=== PATIENT | male | born 1945 | race Caucasian/White ===

== ENCOUNTER 2016-10-31 06:56 | Day surgery (SDC) | payer MEDICARE, OTHER ==
[2016-10-24 10:14] LABS: BASOPHILS 0.6 %; BASOPHILS ABSOLUTE 0.04 10/3/uL (0.0-0.16); EOSINOPHILS 3.8 %; EOSINOPHILS ABSOLUTE 0.26 10/3/uL (0.0-0.53); HEMATOCRIT 39.3 % (40.0-51.0); HEMOGLOBIN 12.9 g/dL (13.6-17.8); IMMATURE GRANULOCYTES 0.3 %; IMMATURE GRANULOCYTES ABSOLUTE 0.02 10/3/uL (0.0-0.11); LYMPHOCYTES 36.2 %; MEAN CORPUS HGB CONC 32.8 g/dL (32.0-36.0); MEAN CORPUSCULAR HEMOGLOB 29.8 pg (26.0-34.0); MEAN PLATELET VOLUME 10.7 fL (9.2-13.0); MONOCYTES 8.7 %; NEUTROPHILS 50.4 %; NEUTROPHILS ABSOLUTE 3.49 10/3/uL (2.02-8.40); PLATELET COUNT 167 10/3/uL (150-400); RBC DISTRIBUTION WIDTH 14.5 % (12.0-16.0); RED CELL COUNT 4.33 10/6/uL (4.7-6.1); WHITE BLOOD CELLS 6.9 10/3/uL (4.5-10.5)
[2016-10-24 10:15] LABS: MANUAL DIFF NO %; MEAN CORPUSCULAR VOLUME 90.8 fL (80-100)
[2016-10-24 10:20] LABS: INTERNATIONAL NORMAL RATI 1.1 UNITS (-); PARTIAL THROMBO TIME 32.1 SEC (22.5-37.2); PROTIME (NOT ORD) 13.8 SEC (12.0-14.5)
[2016-10-24 10:28] LABS: BUN (BLOOD UREA NITROGEN) 15 MG/DL (6-23); CALCIUM, SERUM 9.3 MG/DL (8.5-10.4); CHLORIDE, SERUM 112 MMOL/L (96-112); CO2 (CARBON DIOXIDE) 27 MMOL/L (24-34); CREATININE 1.69 MG/DL (0.70-1.30); GFR AFRICAN AMERICAN 47 ML/MIN (>=60); GFR NON AFRICAN AMERICAN 41 ML/MIN (>=60); GLUCOSE, SERUM 101 MG/DL (60-99); SODIUM, SERUM 147 MMOL/L (135-148)
[2016-10-24 10:29] LABS: POTASSIUM, SERUM 4.3 MMOL/L (3.5-5.3)
--- NOTE | ~2016-10-31 | OP ---
Record Of Operation [facility] [address] [place]. [address] NAME: THANG LUIS : 49 [place]US : [place] [facility] [id number] AGE: 71 ADM/REG DATE : 10/31/16 MR#: [id number] REPORT SERV DATE: 10/31/16 DICTATED BY: KATHY JACKSON DATE: 10/31/16 REPORT STATUS : Draft TRANSCRIBED BY: MODL DATE: 10/31/16 DATE OF PROCEDURE: 10/31/2016 PREOPERATIVE DIAGNOSIS: Right ureteral stone. POSTOPERATIVE DIAGNOSIS: Right ureteral stone. PROCEDURE PERFORMED: Cystoscopy, right retrograde pyelogram, right rigid ureteroscopy with laser fragmentation, and stone extraction and stent placement. SURGEON: Kathy Jackson M.D. ANESTHESIA: General. ESTIMATED BLOOD LOSS: Less than 10 mL. INDICATIONS: This is a 71-year-old white male, who has recently been found to have an obstructing 6 or 7 mm right ureteral stone. After discussion of management options, we have elected to proceed with endoscopic fragmentation and/or removal. Risks of infection, bleeding, failure, prolonged stenting, etc, were reviewed. PROCEDURE IN DETAIL: The patient was taken to the operating room and underwent a general anesthetic. He was placed in the lithotomy position on the table, and his external genitalia were sterilely prepped and draped. The 22-Canadian cystoscope sheath with 30-degree lens was inserted under direct vision per urethra with the aid of the video monitor. The anterior urethra looked normal. The prostate showed evidence of a previous TURP and looked relatively open. There was no bladder neck contracture, and no significant median or lateral lobe adenoma. The urine in the bladder was somewhat cloudy. The bladder was drained and thoroughly inspected. It was somewhat irritated. There were no mass, lesions in the bladder. Single orifices were seen bilaterally. The right orifice was cannulated with a 5-Canadian open-ended catheter and a retrograde pyelogram was obtained showing what I thought was a filling defect in the distal ureter corresponding to the stone and proximal to this, the ureter was perhaps mildly dilated as was the renal collecting system. An 0.038 guidewire was then advanced up into the collecting system of the kidney under fluoroscopic guidance. The cystoscopic apparatus was removed from the bladder and a 9.5/11-Canadian ureteral access sheath was used to dilate the distal ureter up to the level of the stone. The rigid ureteroscope was then advanced up into the bladder again with the aid of the video monitor and the scope was easily advanced up into the ureter and a relatively large stone was encountered. The 200 micron laser device was used to fragment the stone into many small pieces reducing the main bulk of stone into a central core, which was then removed using a basket. I would say the stone was about 7 or may be 8 mm in size. The ureter was reinspected with no significant findings and no significant residual stones noted. At that point, the ureteroscope was withdrawn from the bladder. The cystoscope was replaced over the guidewire and a 6-Canadian x 28 cm Contour stent was advanced over the guidewire such that the proximal end of the stent was observed to coil in the pelvis of the kidney under fluoroscopic guidance and the distal end of the stent was visually observed to coil in the Record Of Operation [address] [place]. [address] NAME: THANG LUIS : 49 [place]US : [place] [facility] [place] PAT#: [id number] AGE: 71 ADM/REG DATE : 10/31/16 MR#: [id number] REPORT SERV DATE: 10/31/16 DICTATED BY: KATHY JACKSON DATE: 10/31/16 REPORT STATUS : Draft TRANSCRIBED BY: BRODERICK DATE: 10/31/16 bladder following removal of the guidewire. The stent was left connected to a string dangle which was taped to the patient's penis. I placed an 18-Canadian coude catheter and left this to gravity drainage as well. The patient was taken to recovery in stable condition. TRISH/BRODERICK Kathy Jackson M.D. / [id number] CC: Luc Miller M.D.
[~2016-10-31 06:56] MED LIST: AMB10 PO; ANOROELLIPTA INH; ATARAX50B PO; BRIMONIDINE0.2 % OPH; DOX10 PO; ENDOCET1 TA3 PO; FISH OIL1200 MG PO; FLOMAX4 PO; LORT2.5 PO; LOTREL1 CA2 PO; LUMIGAN OPH; PERPHENAZINE2 MG PO; PRIN10 PO; PROAIR HFA INH; PROSCAR5 PO; PROTONIX PO; RANITIDINE300 MG PO; TOPAMAX25 PO; TOPAMAX50 MG PO; WELLSR150 PO; ZANAFLEX 4 MG TA4 MG PO
[2016-11-06 10:54] LABS: STONE COMPOSITION TWO DNR (())
== END 2016-10-31 13:30 | disposition home or self-care (01) ==
LOC: SDC 06:56
PROVIDERS: Urology
PROC: 0T768DZ Dilation of Right Ureter with Intraluminal Device, Via Natural or Artificial Opening Endoscopic (ICD-10-PCS; 2016-10-31)
PROC: 0TC68ZZ Extirpation of Matter from Right Ureter, Via Natural or Artificial Opening Endoscopic (ICD-10-PCS; 2016-10-31)
PROC: 0TF68ZZ Fragmentation in Right Ureter, Via Natural or Artificial Opening Endoscopic (ICD-10-PCS; principal; 2016-10-31 08:45)
DX: N20.1 Calculus of ureter (principal); I10 Essential (primary) hypertension; E11.9 Type 2 diabetes mellitus without complications; E78.00 Pure hypercholesterolemia, unspecified; J44.9 Chronic obstructive pulmonary disease, unspecified; K21.9 Gastro-esophageal reflux disease without esophagitis; K64.9 Unspecified hemorrhoids; F32.9 Major depressive disorder, single episode, unspecified; F41.9 Anxiety disorder, unspecified; G47.33 Obstructive sleep apnea (adult) (pediatric); G40.909 Epilepsy, unspecified, not intractable, without status epilepticus; H40.9 Unspecified glaucoma; M19.90 Unspecified osteoarthritis, unspecified site; Z88.8 Allergy status to other drugs, medicaments and biological substances; Z96.651 Presence of right artificial knee joint; Z87.891 Personal history of nicotine dependence; Z96.1 Presence of intraocular lens; Z98.41 Cataract extraction status, right eye; Z98.42 Cataract extraction status, left eye; Z90.49 Acquired absence of other specified parts of digestive tract; Z98.890 Other specified postprocedural states
CPT/HCPCS: 71020; 74420; 80048; 82365; 82962; 83970; 85025; 85610; 85730; 93005; C1758; C2617; J1170; J2250; J2405; J3010; Q9967

== ENCOUNTER 2016-11-21 16:35 | Inpatient (IN) | payer MEDICARE, OTHER ==
--- NOTE | ~2016-11-21 | DS ---
Discharge Summary [facility] [address] [place]. [address] NAME: TYSON LUIS : 49 STATUS : DIS IN PAT#: [id number] AGE: 71 ADM/REG DATE : 11/21/16 MR#: [id number] REPORT SERV DATE: 11/24/16 DICTATED BY: SHOSHANA CAMACHO DATE: 11/23/16 REPORT STATUS : Draft TRANSCRIBED BY: MODL DATE: 11/23/16 ADMISSION DATE: 11/21/2016 DISCHARGE DATE: 11/23/2016 The patient was admitted to the Hospitalist Service. CONSULTANTS: Dr. Michael Adkins, Gastroenterology. DISCHARGE DIAGNOSES: 1. Chronic nausea. 2. Chronic dysphagia, present on arrival. 3. Hypertension. 4. Presyncope. 5. Chronic pain. 6. Bradycardia. 7. Chronic kidney disease, stage 3. 8. Recent lithotripsy and ureteral stent. 9. Atypical chest pain. PROCEDURES: 11/22/2016, upper GI endoscopy revealed normal examined duodenum, normal stomach biopsied, normal esophagus dilated. IMAGING AND DIAGNOSTICS: 1. EKG on 11/22/2016 in the emergency room showed marked sinus bradycardia, ventricular rate 43 beats per minute. Repeat EKG on 11/22/2016, normal sinus rhythm, cannot rule out anterior infarct, age undetermined. 2. EKG, 11/23/2016, normal sinus rhythm. 3. Transthoracic echocardiogram on 11/22/2016 revealed a normal LV size and systolic function with an EF of 60%. Mild LV diastolic dysfunction. Normal right ventricular size and systolic function. No significant valvular disease. 4. Nuclear medicine stress test on 11/23/2016, imaging demonstrated no ischemia, post infusion LVEF greater than 60%. Overall low-risk vasodilator stress test. 5. A carotid ultrasound revealed carotids category 1, less than 50% luminal stenosis bilaterally. Right vertebral antegrade subclavian velocity 81 cm/second. Left vertebral antegrade subclavian velocity 107 cm/second. LABORATORY STUDIES: 1. Discharge basic metabolic panel on 11/23/2016 revealed a sodium of 145, potassium 3.8, chloride 113, CO2 of 23, BUN 15, creatinine 1.34, GFR 54, glucose 90, calcium 9.4, magnesium 1.9. 2. Discharge CBC on 11/23/2016 revealed a white count of 7, hemoglobin 12, hematocrit 37.4, platelets 178,000. 3. Urinalysis on 11/21/2016 was negative. HISTORY OF PRESENT ILLNESS: For complete history, please refer to admission H and P by Dr. Shaggy Ace. Briefly, Mr. Luis is a 71-year-old, gentleman with a history of Discharge Summary [address] [address] NAME: TYSON LUIS : 49 STATUS : DIS IN PAT#: [id number] AGE: 71 ADM/REG DATE : 11/21/16 MR#: [id number] REPORT SERV DATE: 11/24/16 DICTATED BY: SHOSHANA CAMACHO DATE: 11/23/16 REPORT STATUS : Draft TRANSCRIBED BY: BRODERICK DATE: 11/23/16 dysphagia, presented to the emergency room with a three-week history of nausea, vomiting, and presyncope. He states that he had a ureteral stent and lithotripsy about three weeks ago and since that time, has had difficulty keeping food down. In addition, he reports for the past six months, he has had multiple presyncopal episodes where he gets weak, dizzy, and sometimes having tunneled vision up to 30-60 minutes at a time. He denies any chest pain or palpitations. However, he does state that these spells occur not only relating to his GI symptoms, but at other times. He was seen in Dr. Dominguez's office on the day of his admission and was noted to be bradycardiac with a heart rate in the 40s. Therefore, he was sent to the hospital for further evaluation and treatment. The Hospitalist Service was asked to admit the patient. HOSPITAL COURSE: Mr. Luis was admitted to a telemetry bed with admission diagnosis of dysphagia, syncope, bradycardia, and weight loss. A consult was placed to Dr. Dominguez. He was provided with IV fluids, DVT prophylaxis. A carotid ultrasound and echocardiogram were ordered, results are as above. Other labs ordered were included serial troponins which were less than 0.02, 0.03, and less than 0.02. On 11/22/2016, he was seen by Dr. Adkins who placed the patient n.p.o. and requested a consent for EGD. I initially saw the patient on 11/22/[address]. Adkins called me prior to my assessment of the patient and he said his EGD was basically normal and from the GI standpoint, he could be discharged home and follow up outpatient with Dr. Dominguez. When I saw Mr. Luis, he was eating a sandwich and drinking milk without difficulty, having no nausea and vomiting. Denied any dizziness, however, he reported some left-sided intermittent chest pain. When questioned further about the chest pain, he states that at some time it radiated down his left arm. He does have a previous history of being a heavy smoker and heart disease in his family. Therefore, he was made n.p.o. after midnight and with three negative troponins was scheduled for a nuclear medicine stress test on 11/23/2016. I saw Mr. Luis after his stress test in the late afternoon on 11/23/2016, he denied any chest pain. He had not eaten since yesterday. Therefore, he was very anxious to eat and he was provided a regular diet which he tolerated without any nausea and vomiting. He did have a bowel movement earlier in the day and no presyncope since his admission. His blood pressure did remain high and his creatinine was also elevated. Therefore, his lisinopril home dose was discontinued and he was placed on amlodipine 5 mg daily which was increased to amlodipine 10 mg p.o. daily on 11/23/2016. His physical exam was unremarkable. His blood pressure at 5 p.m. was 175/70, heart rate 79, respirations 16, he was afebrile and ready to be discharged home. He was alert and oriented, cooperative, in no acute distress. His lungs were clear to auscultation bilaterally. He was in sinus rhythm per telemetry. Regular rate and rhythm. No murmurs, rubs, or gallops. Abdomen soft, nontender. Active bowel sounds. Peripheral pulses palpable with no clubbing, cyanosis, or edema. Therefore, with a normal nuclear medicine stress test and a normal EGD, it was felt that the patient could be discharged home safely with followup with GI and a new PCP. Mr. Luis states that he was previously followed by Dr. Tyson Cordero, however, he was scheduled to see Dr. Deangelo Rosado in December. I was able to call Dr. Rosado's office and schedule a followup appointment for him next week. I have asked Mr. Luis and his to keep a blood pressure diary and take it to Dr. Rosado's office next week for his appointment on 11/28/2016. Therefore, he was discharged home today in stable condition. Discharge Summary [facility] [place]. [address] NAME: TYSON LUIS : 49 STATUS : DIS IN PAT#: [id number] AGE: 71 ADM/REG DATE : 11/21/16 MR#: [id number] REPORT SERV DATE: 11/24/16 DICTATED BY: SHOSHANA CAMACHO DATE: 11/23/16 REPORT STATUS : Draft TRANSCRIBED BY: BRODERICK DATE: 11/23/16 DISCHARGE INSTRUCTIONS: 1. Soft diet as tolerated. 2. Activity as tolerated. DISCHARGE MEDICATIONS: 1. Alphagan eyedrops, one drop both eyes daily. 2. Doxepin 10 mg p.o. daily at bedtime. 3. Proscar 5 mg p.o. daily in the morning. 4. Xalatan eyedrops 0.005% both eyes at bedtime, one drop. 5. Fish oil 1200 mg p.o. b.i.d. 6. Protonix 40 mg p.o. daily. 7. Flomax 0.4 mg p.o. daily. 8. Topamax 50 mg p.o. daily with breakfast and lunch. 9. Anoro Ellipta 62.5/25 mcg one inhalation daily. 10.Oxycodone APAP 10/325 mg one p.o. q.6 hours p.r.n. 11.Zanaflex 4 mg p.o. every eight hours p.r.n. 12.Amlodipine 10 mg p.o. daily. OTHER DISCHARGE INSTRUCTIONS: Include again, Mr. Luis will follow up with Dr. Deangelo Rosado on 11/28/2016 at 11:30 and follow up with Dr. Dominguez in three weeks. This discharge took over 35 minutes. DICTATED BY: STEPHEN Larson DICTATED FOR: Luc Mayfield/BRODERICK MELANIE LarsonP-BC Shoshana Camacho M.D. / [id number] CC: Luc Mayfield M.D. Christopher Greene, M.D.
--- NOTE | ~2016-11-21 | CN ---
Consultation Report [facility] [address] [place]. [address] NAME: THANG LUIS : 49 STATUS : ADM IN PAT#: [id number] AGE: 71 ADM/REG DATE : 11/21/16 MR#: [id number] REPORT SERV DATE: 11/22/16 DICTATED BY: EB ADKINS DATE: 11/22/16 REPORT STATUS : Draft TRANSCRIBED BY: MODL DATE: 11/22/16 GI CONSULTATION DATE OF CONSULTATION: 11/22/2016 REASON FOR CONSULTATION: Nausea, vomiting. HISTORY OF PRESENT ILLNESS: Mr. Luis is a 71-year-old gentleman admitted yesterday. He was seen by Dr. Dominguez, in the office, where he was found to be bradycardic and sent to the emergency room. It appears that his bradycardia may be related to the fact that he gets nauseated and then vomits. It appears that, he has had a recent cystoscopy for ureteral stones with lithotripsy and stent placement, and then he started having this trouble with nausea, vomiting, and difficulty keeping food down. He takes a few bites and gets sick. He feels like food sticks in the esophagus. He has not had a problem of this nature in the past. PAST MEDICAL HISTORY: COPD, hypertension, chronic kidney disease, peripheral vascular disease, anxiety and depression, renal stones, dysphagia, BPH, history of aortic aneurysm, history of seizures, and history of skin cancer. PAST SURGICAL HISTORY: Include cholecystectomy, left total knee replacement, TURP, back surgery, and eye surgery. HOME MEDICATIONS: Pepto-Bismol, Alphagan eye drops, Nexium, Proscar, lisinopril, Endocet, Protonix, Flomax, Zanaflex, Topamax. ALLERGIES: BENADRYL. HABITS: He used to smoke and drink, but has quit for a long time. REVIEW OF SYSTEMS: He describes the general health to be fair. Other than that, the rest of the 10-point review of systems is as above. PHYSICAL EXAMINATION: GENERAL: He is fully alert, oriented gentleman, presently in no acute distress with stable vital signs. LUNGS: Reveal good air entry bilaterally. No rales or rhonchi. CVS: Normal. ABDOMEN: Soft, nondistended, nontender. There is no mass, guarding, rigidity, or rebound. Liver and spleen are not palpable. Clinically, there is no ascites. EXTREMITIES: Without any edema. Consultation Report [address] [place]. [address] NAME: THANG LUIS : [birth year] STATUS : ADM IN PAT#: [id number] AGE: 71 ADM/REG DATE : 11/21/16 MR#: [id number] REPORT SERV DATE: 11/22/16 DICTATED BY: EB ADKINS DATE: 11/22/16 REPORT STATUS : Draft TRANSCRIBED BY: BRODERICK DATE: 11/22/16 IMAGING: CT of the abdomen and pelvis done through the emergency room done with contrast reveals no acute abdominal or pelvic pathology. There are multiple hepatic cysts, largest measuring 5.4 cm, and there is status post cholecystectomy and disc surgeries. LABORATORY DATA: BMP reveals a BUN and creatinine of 15 and 1.53, otherwise negative, and CBC reveals a white count of 6.8 with a hemoglobin and hematocrit of 11.3 and 34.5, with platelets of 200,000, and an INR of 1.1. IMPRESSION: 1. Nausea, vomiting, and dysphagia. 2. Renal stones with what appears to be having ureteral stent. According to the patient, symptoms started after that. 3. Gastroesophageal reflux disease. 4. Hypertension. RECOMMENDATIONS: Case was discussed with the patient. We will keep n.p.o. and proceed with an EGD. BRITTANY/BRODERICK Ivana Adkins M.D. / [id number] CC: Luc Mayfield M.D.
--- NOTE | ~2016-11-21 | EGD ---
EGD REPORT [facility] [address] [address] NAME: TYSON HURTADO : 49 STATUS : ADM IN PAT#: [id number] AGE: 71 ADM/REG DATE : 11/21/16 MR#: [id number] REPORT SERV DATE: 11/22/16 DICTATED BY: EB GARCIA DATE: 11/22/16 REPORT STATUS : Draft TRANSCRIBED BY: [employer] DATE: 11/22/16 [facility] Patient Name: Tyson Hurtado Date of : 1945 Attending MD: ONEYDA GARCIA MD Procedure Date No Time: 11/22/2016 Procedure: Upper GI endoscopy Indications: Dysphagia, Nausea with vomiting Medicines: See the Anesthesia note for documentation of the administered medications Complications: No immediate complications. Estimated blood loss: None. Procedure: Pre-Anesthesia Assessment: - ASA Grade Assessment: III - A patient with severe systemic disease. After obtaining informed consent, the endoscope was passed under direct vision. Throughout the procedure, the patient's blood pressure, pulse, and oxygen saturations were monitored continuously. The GIF [id number] was introduced through the mouth, and advanced to the second part of duodenum. The upper GI endoscopy was accomplished without difficulty. The patient tolerated the procedure well. Findings: The examined duodenum was normal. The entire examined stomach was normal. Biopsy with a cold forceps was performed for histology. The cardia and gastric fundus were normal on retroflexion. The examined esophagus was normal. A guidewire was placed and the scope was withdrawn. Dilation was performed with a Savary dilator with no resistance at 45 Fr, no resistance at 51 Fr and no resistance at 57 Fr. Estimated blood loss: none. Impression: - Normal examined duodenum. - Normal stomach. Biopsied. - Normal esophagus. Dilated. Recommendation: - Patient has a contact number available for emergencies. The signs and symptoms of potential delayed complications were discussed with the patient. Return to normal activities tomorrow. Written discharge instructions were provided to the patient. - Regular diet. - [facility]. - Await pathology results. EGD REPORT [address] [address] NAME: TYSON HURTADO : [birth year] STATUS : ADM IN PAT#: [id number] AGE: 71 ADM/REG DATE : 11/21/16 MR#: [id number] REPORT SERV DATE: 11/22/16 DICTATED BY: EB GARCIA DATE: 11/22/16 REPORT STATUS : Draft TRANSCRIBED BY: [employer] DATE: 11/22/16 - OK to discharge from a GI standpoint, if OK with others and f/u with Dr Dominguez as an outpatient Procedure Code(s): --- Professional --- 11291, Esophagogastroduodenoscopy, flexible, transoral; with insertion of guide wire followed by passage of dilator(s) through esophagus over guide wire 31789, Esophagogastroduodenoscopy, flexible, transoral; with biopsy, single or multiple Diagnosis Code(s): --- Professional --- R13.10, Dysphagia, unspecified R11.2, Nausea with vomiting, unspecified CPT copyright 2013 [employer]. All rights reserved. The codes documented in this report are preliminary and upon pre coder review may be revised to meet current compliance requirements. ONEYDA GARCIA MD 11/22/2016 1:31 PM This report has been signed electronically. Number of Addenda: 0 Note Initiated On: 11/22/2016 11:19 AM Scope Withdrawal Time 0 hours 0 minutes 0 seconds [id number] [place] [id number]
--- NOTE | ~2016-11-21 | HP ---
History And Physical [place] [address] [facility] [place]. [address] NAME: TYSON LUIS : 49 STATUS : ADM IN PAT#: [id number] AGE: 71 ADM/REG DATE : 11/21/16 MR#: [id number] REPORT SERV DATE: 11/22/16 DICTATED BY: ORALIA WINTERS DATE: 11/21/16 REPORT STATUS : Draft TRANSCRIBED BY: MODL DATE: 11/21/16 DATE OF ADMISSION: 11/21/2016 POINT OF ENTRY: [facility]. PRIMARY CARE PHYSICIAN: Dr. Tyson Cordero, now Dr. Barron. PRIMARY WEIGHTER: Dr. Dominguez. CHIEF COMPLAINT: Nausea, vomiting, presyncope. HISTORY OF PRESENT ILLNESS: Mr. Luis is a 71-year-old gentleman with a history of dysphagia, nephrolithiasis, hypertension, chronic kidney stage 3, and other medical comorbidities who presents to emergency department today with a three-week history of nausea, vomiting, as well as a chronic history of presyncope. The patient states that since his cystoscopy for ureteral stone with lithotripsy and stent placement about three weeks ago, he has had difficulties keeping food down. The patient states that he will be able to get a few bites of food down without any significant difficulties and then will become very sick and have profound nausea and vomiting. He denies any choking on the food, denies any difficulties swallowing the food or any sensation of a getting stuck in his throat. He states that he has been primarily subsisting on liquids for which he has no troubles swallowing liquids or keeping the liquid diet down. The patient states that for the past six months, he has had troubles with presyncope with innumerous spells where he will get very weak, dizzy, have blurry vision as well as some tunnel vision. He states these spells last between 30 minutes to 60 minutes. He denies any preceding chest pain or palpitations. He states that these spells occur not only in association with his GI complaints, but also unrelated to his GI complaints. Again, this has been going on for six months now. The patient was seen in Dr. Dominguez's office today; however, he was referred to the emergency department as it was noticed that he was bradycardic with heart rates in the 40s. Initial evaluation in the emergency department notable for a heart rate of 47; however, this is now improved to 60s to 70s, normal sinus rhythm. Labs were otherwise unremarkable. CT scan of the abdomen and pelvis is pending at the time of dictation. The patient was subsequently admitted to the Hospitalist Service for further evaluation and management. The patient does report some recent weight loss; however, he feels as if he has gained back a few pounds over the last few weeks. Again, he denies any fevers, night sweats, chills, chest pain, palpitations, shortness of breath, cough, sputum production, dysuria, lower extremity edema, melena, hematochezia, or hematemesis. REVIEW OF SYSTEMS: Comprehensive review of systems otherwise negative unless listed in history present illness. History And Physical [address] [address] NAME: TYSON LUIS : [birth year] STATUS : ADM IN [facility]#: [id number] AGE: 71 ADM/REG DATE : 11/21/16 MR#: [id number] REPORT SERV DATE: 11/22/16 DICTATED BY: ORALIA WINTERS DATE: 11/21/16 REPORT STATUS : Draft TRANSCRIBED BY: BRODERICK DATE: 11/21/16 The patient does report the six-month history of presyncopal episodes as well as the nausea and vomiting associated with eating as well as some bilateral lower quadrant abdominal pain. PREVIOUS MEDICAL HISTORY: 1. COPD. 2. Hypertension. 3. Skin cancer. 4. Chronic kidney stage 3, baseline creatinine 1.5 to 1.7. 5. Peripheral vascular disease. 6. Anxiety and depression. 7. Nephrolithiasis. 8. Dysphagia. 9. BPH. 10.History of Gastric reflux disease. 11.Aortic aneurysm. 12.History of seizure. SURGICAL HISTORY: 1. Cholecystectomy. 2. Left total knee. 3. TURP. 4. Multiple lumbar back surgeries. 5. Multiple cervical neck surgeries. 6. Multiple eye surgeries. ALLERGIES: TO BENADRYL AND RANITIDINE. HOME MEDICATIONS: 1. Pepto-Bismol 30 mL p.r.n. 2. Alphagan eye drops b.i.d. both eyes. 3. Doxepin 10 mg at bedtime. 4. Nexium 20 mg daily. 5. Proscar 5 mg daily. 6. Xalatan eye drops at bedtime. 7. Lisinopril 10 mg daily. 8. Berlin-3 fatty acid fish oil 1200 mg b.i.d. 9. Endocet 10/325, one tab q.6 hours p.r.n. 10.Protonix 40 mg daily. 11.Flomax 0.4 mg daily. 12.Zanaflex 4 mg q.8 hours p.r.n. 13.Topamax 50 mg b.i.d. 14.Anoro Ellipta one inhalation daily. SOCIAL HISTORY: Denies any tobacco, alcohol, or illicits. He is a former smoker, quit about four years ago. FAMILY HISTORY: Mother with hypertension. Father with coronary artery disease. Siblings History And Physical [address] [address] NAME: TYSON LUIS : 49 STATUS : ADM IN [facility]#: [id number] AGE: 71 ADM/REG DATE : 11/21/16 MR#: [id number] REPORT SERV DATE: 11/22/16 DICTATED BY: ORALIA WINTERS DATE: 11/21/16 REPORT STATUS : Draft TRANSCRIBED BY: BRODERICK DATE: 11/21/16 with hypertension. LABS AND IMAGIN. White count 7.1, hemoglobin 11.7, hematocrit 35.7, platelet 198, INR 1.1. 2. Sodium is 143, potassium 3.6, chloride 110, carbon dioxide 28, BUN 14, creatinine 1.57, glucose is 92, calcium 9.6, magnesium 1.8. 3. Troponin is less than 0.02. BNP is 174. 4. Urinalysis: Specific gravity is 1.003 without evidence of any infection. 5. Chest x-ray per my review shows no acute cardiopulmonary abnormality. 6. EKG per my review shows sinus bradycardia, rate in the 40s. Otherwise, no evidence of any ischemia or infarction. PHYSICAL EXAMINATION: VITAL SIGNS: Temperature is 97.9 degrees Fahrenheit, pulse is 47, respirations 14, saturating 98% on room air, blood pressure 120/62, on recheck blood pressure now is 160/85 with pulse in the 60s. GENERAL: The patient is awake, alert, in no acute distress. Resting comfortably in bed. He is a well-developed, well-nourished, elderly male. HEENT: Atraumatic and normocephalic. Moist mucous membranes. Pupils are equal, round, reactive to light and accommodation. Extraocular eye movements intact. No scleral icterus. NECK: No jugular venous distention. No carotid bruits. CARDIAC: Regular rate and rhythm. No murmurs or gallops. Normal S1, S2. LUNGS: Clear to auscultation bilaterally. No wheezes, rhonchi, or crackles. ABDOMEN: Soft, tender to palpation in bilateral lower quadrants. Otherwise, no rebound, guarding, or rigidity. EXTREMITIES: Warm and well perfused. No cyanosis, clubbing, or edema. SKIN: Warm and dry. PSYCH: Affect appropriate. NEURO: Alert and oriented x3. Cranial nerves II through XII grossly intact. Speech is normal. Gait not assessed. ASSESSMENT AND PLAN: Mr. Luis is a 71-year-old gentleman who presents with a few-week history of, what sounds to be, dysphagia as well as a six-month history of presyncope. PROBLEM LIST: 1. Dysphagia. 2. Nausea and vomiting. 3. Presyncope. 4. Sinus bradycardia. 5. Chronic kidney disease, stage 3. PLAN: 1. Dysphagia with nausea and vomiting. Based on the patient's description, it sounds like he may have either functional dysphagia or some kind of mass lesion or obstruction. We will follow with CT scan of abdomen and pelvis ordered here in the emergency department as well as consult the patient's primary clinical services director, Dr. Dominguez. For assistance for further evaluation, the patient will likely need EGD and maybe formal History And Physical [address] [address] NAME: TYSON LUIS : [birth year] STATUS : ADM IN [facility]#: [id number] AGE: 71 ADM/REG DATE : 11/21/16 MR#: [id number] REPORT SERV DATE: 11/22/16 DICTATED BY: ORALIA WINTERS DATE: 11/21/16 REPORT STATUS : Draft TRANSCRIBED BY: BRODERICK DATE: 11/21/16 speech therapy evaluation. 2. Presyncope, unclear etiology at this time. This has been going on for six months which precedes his GI symptoms. Orthostatic vital signs here were unremarkable as well as labs and chest x-ray. He was noted to be somewhat bradycardic initially upon presentation, likely secondary vasovagal, but this is now improved. We will check an echocardiogram as well as carotid arterial Dopplers and continue to monitor his heart rhythms. 3. Bradycardia, likely secondary to vasovagal. This has now since resolved. We will continue cardiac telemetry monitoring overnight. Trend out cardiac enzymes. 4. Chronic kidney disease, stage 3. The patient presented within his recent baseline. Continue to monitor. 5. DVT prophylaxis, Lovenox subcutaneously. CODE STATUS: The patient wishes to be full code. JCB/MODL Oralia Winters MD / [id number] CC: Luc Mayfield M.D.
[2016-11-21] MEDS ORDERED: DOX10 PO (17:21)
[2016-11-21] MEDS ORDERED: PROSCAR5 PO (17:22)
[2016-11-21] MEDS ORDERED: FISH OIL1200 MG PO (17:23)
[2016-11-21] MEDS ORDERED: ENDOCET1 TA3 PO (17:23)
[2016-11-21] MEDS ORDERED: ALPHAGAN OPH (17:24)
[2016-11-21] MEDS ORDERED: FLOMAX4 PO (17:24)
[2016-11-21] MEDS ORDERED: XALAT OPH (17:25)
[2016-11-21] MEDS ORDERED: NEXIUM20 M1 PO (17:26)
[2016-11-21] MEDS ORDERED: ZANAFLEX 4 MG TA4 MG PO (17:27)
[2016-11-21] MEDS ORDERED: TOPAMAX50 MG PO (17:28)
[2016-11-21] MEDS ORDERED: PROTONIX PO (17:28)
[2016-11-21] MEDS ORDERED: ANOROELLIPTA INH (17:29)
[2016-11-21] MEDS ORDERED: PRIN10 PO (17:29)
[2016-11-21] MEDS ORDERED: PEPTO BISMOL LIQ1 ML PO (17:32)
[2016-11-21 17:55] LABS: BASOPHILS 0.3 %; BASOPHILS ABSOLUTE 0.02 10/3/uL (0.0-0.16); EOSINOPHILS 3.5 %; EOSINOPHILS ABSOLUTE 0.25 10/3/uL (0.0-0.53); HEMATOCRIT 35.7 % (40.0-51.0); HEMOGLOBIN 11.7 g/dL (13.6-17.8); IMMATURE GRANULOCYTES 0.1 %; IMMATURE GRANULOCYTES ABSOLUTE 0.01 10/3/uL (0.0-0.11); LYMPHOCYTES 44.5 %; LYMPHOCYTES ABSOLUTE 3.14 10/3/uL (0.67-4.30); MANUAL DIFF NO %; MEAN CORPUS HGB CONC 32.8 g/dL (32.0-36.0); MEAN CORPUSCULAR HEMOGLOB 30.1 pg (26.0-34.0); MEAN CORPUSCULAR VOLUME 91.8 fL (80-100); MONOCYTES 9.9 %; NEUTROPHILS 41.7 %; NEUTROPHILS ABSOLUTE 2.93 10/3/uL (2.02-8.40); PLATELET COUNT 188 10/3/uL (150-400); RBC DISTRIBUTION WIDTH 14.9 % (12.0-16.0); RED CELL COUNT 3.89 10/6/uL (4.7-6.1); WHITE BLOOD CELLS 7.1 10/3/uL (4.5-10.5)
[2016-11-21 18:02] LABS: INTERNATIONAL NORMAL RATI 1.1 UNITS (-); PROTIME (NOT ORD) 14.4 SEC (12.0-14.5)
[2016-11-21 18:03] LABS: PARTIAL THROMBO TIME 30.2 SEC (22.5-37.2)
[2016-11-21 18:12] LABS: BUN (BLOOD UREA NITROGEN) 14 MG/DL (6-23); CALCIUM, SERUM 9.6 MG/DL (8.5-10.4); CHEST PAIN PROFILE TAT 0 Hrs 21 Mins; CHLORIDE, SERUM 110 MMOL/L (96-112); CO2 (CARBON DIOXIDE) 28 MMOL/L (24-34); CREATININE 1.57 MG/DL (0.70-1.30); GFR AFRICAN AMERICAN 51 ML/MIN (>=60); GFR NON AFRICAN AMERICAN 44 ML/MIN (>=60); GLUCOSE, SERUM 92 MG/DL (60-99); POTASSIUM, SERUM 3.6 MMOL/L (3.5-5.3); SODIUM, SERUM 143 MMOL/L (135-148); TROPONIN I <0.02 NG/ML (<0.05)
[2016-11-21 18:20] LABS: ASCORBIC ACID (UR NOT ORDER) NEG (NEG); BILIRUBIN, URINE NEGATIVE (NEG); ER URINALYSIS TAT 0 Hrs 08 Mins; KETONE, URINE NEGATIVE (NEG); LEUKOCYTE ESTERASE(NOT OR NEG (NEG); NITRITE (URINE) NEG (NEG); WBC (NOT ORDERED) (RFLEX) 1 (0-5)
[2016-11-22 06:36] LABS: BASOPHILS 0.3 %; BASOPHILS ABSOLUTE 0.02 10/3/uL (0.0-0.16); EOSINOPHILS 2.9 %; HEMATOCRIT 34.5 % (40.0-51.0); HEMOGLOBIN 11.3 g/dL (13.6-17.8); IMMATURE GRANULOCYTES 0.1 %; IMMATURE GRANULOCYTES ABSOLUTE 0.01 10/3/uL (0.0-0.11); LYMPHOCYTES 36.3 %; LYMPHOCYTES ABSOLUTE 2.48 10/3/uL (0.67-4.30); MANUAL DIFF NO %; MEAN CORPUS HGB CONC 32.8 g/dL (32.0-36.0); MEAN CORPUSCULAR HEMOGLOB 30.4 pg (26.0-34.0); MEAN CORPUSCULAR VOLUME 92.7 fL (80-100); MEAN PLATELET VOLUME 10.4 fL (9.2-13.0); MONOCYTES 10.1 %; MONOCYTES ABSOLUTE 0.69 10/3/uL (0.21-1.20); NEUTROPHILS 50.3 %; NEUTROPHILS ABSOLUTE 3.43 10/3/uL (2.02-8.40); PLATELET COUNT 200 10/3/uL (150-400); RBC DISTRIBUTION WIDTH 14.4 % (12.0-16.0); RED CELL COUNT 3.72 10/6/uL (4.7-6.1); WHITE BLOOD CELLS 6.8 10/3/uL (4.5-10.5)
[2016-11-22 06:41] LABS: BUN (BLOOD UREA NITROGEN) 15 MG/DL (6-23); CALCIUM, SERUM 9.3 MG/DL (8.5-10.4); CHLORIDE, SERUM 114 MMOL/L (96-112); CO2 (CARBON DIOXIDE) 26 MMOL/L (24-34); CPK 41 U/L (0-200); CREATININE 1.53 MG/DL (0.70-1.30); GFR AFRICAN AMERICAN 53 ML/MIN (>=60); GFR NON AFRICAN AMERICAN 46 ML/MIN (>=60); GLUCOSE, SERUM 93 MG/DL (60-99); POTASSIUM, SERUM 3.7 MMOL/L (3.5-5.3); SODIUM, SERUM 146 MMOL/L (135-148); TROPONIN I 0.03 NG/ML (<0.05)
[2016-11-22 06:42] LABS: CK-MB 1.4 NG/ML
[2016-11-22 09:58] LABS: HEMOGLOBIN 11.7 g/dL (13.6-17.8); MEAN CORPUSCULAR HEMOGLOB 29.8 pg (26.0-34.0); MEAN PLATELET VOLUME 10.5 fL (9.2-13.0); PLATELET COUNT 145 10/3/uL (150-400); RBC DISTRIBUTION WIDTH 14.5 % (12.0-16.0); RED CELL COUNT 3.93 10/6/uL (4.7-6.1); WHITE BLOOD CELLS 6.7 10/3/uL (4.5-10.5)
[2016-11-22 10:02] LABS: MEAN CORPUS HGB CONC 30.8 g/dL (32.0-36.0); MEAN CORPUSCULAR VOLUME 96.7 fL (80-100)
[2016-11-22 10:03] LABS: MANUAL DIFF YES %
[2016-11-22 10:17] LABS: ALBUMIN 3.2 G/DL (3.5-5.0); BUN (BLOOD UREA NITROGEN) 15 MG/DL (6-23); CALCIUM, SERUM 9.7 MG/DL (8.5-10.4); CHLORIDE, SERUM 114 MMOL/L (96-112); CO2 (CARBON DIOXIDE) 22 MMOL/L (24-34); CREATININE 1.48 MG/DL (0.70-1.30); GFR AFRICAN AMERICAN 55 ML/MIN (>=60); GFR NON AFRICAN AMERICAN 48 ML/MIN (>=60); GLOBULIN 3.3 G/DL (2.5-4.1); GLUCOSE, SERUM 91 MG/DL (60-99); POTASSIUM, SERUM 4.2 MMOL/L (3.5-5.3); SGPT(ALT) 19 U/L (5-65); SODIUM, SERUM 143 MMOL/L (135-148); TOTAL PROTEIN 6.5 G/DL (6.0-8.5)
[2016-11-22 10:18] LABS: ALKALINE PHOSPHATASE 79 U/L (45-117); SGOT(AST) 24 U/L (5-40)
[2016-11-22 10:39] LABS: EOSINOPHILS 3 %; LYMPHOCYTES 37 %; LYMPHOCYTES ABSOLUTE (CALC) 2.48 10/3/uL (0.67-4.30); MONOCYTES 9 %; NEUTROPHILS ABSOLUTE (CALC) 3.42 10/3/uL (2.02-8.40); PLATELET ESTIMATE SLT DEC (ADEQUATE); RBC MORPHOLOGY NORM (NORMAL); SEGMENTED NEUTROPHIL (0) 51 %; TOTAL NUCLEATED CELLS 100
[2016-11-22 10:54] LABS: TROPONIN I <0.02 NG/ML (<0.05)
[2016-11-22 10:56] LABS: CK-MB 3.4 NG/ML; CPK 272 U/L (0-200)
[2016-11-23 06:29] LABS: BASOPHILS 0.3 %; BASOPHILS ABSOLUTE 0.02 10/3/uL (0.0-0.16); EOSINOPHILS 2.4 %; EOSINOPHILS ABSOLUTE 0.17 10/3/uL (0.0-0.53); HEMATOCRIT 37.4 % (40.0-51.0); IMMATURE GRANULOCYTES 0.3 %; IMMATURE GRANULOCYTES ABSOLUTE 0.02 10/3/uL (0.0-0.11); LYMPHOCYTES 35.7 %; LYMPHOCYTES ABSOLUTE 2.48 10/3/uL (0.67-4.30); MEAN CORPUS HGB CONC 32.1 g/dL (32.0-36.0); MEAN CORPUSCULAR HEMOGLOB 29.9 pg (26.0-34.0); MEAN PLATELET VOLUME 10.5 fL (9.2-13.0); MONOCYTES 10.4 %; MONOCYTES ABSOLUTE 0.72 10/3/uL (0.21-1.20); NEUTROPHILS 50.9 %; NEUTROPHILS ABSOLUTE 3.54 10/3/uL (2.02-8.40); PLATELET COUNT 178 10/3/uL (150-400); RBC DISTRIBUTION WIDTH 14.5 % (12.0-16.0); RED CELL COUNT 4.01 10/6/uL (4.7-6.1)
[2016-11-23 06:31] LABS: MANUAL DIFF NO %; MEAN CORPUSCULAR VOLUME 93.3 fL (80-100)
[2016-11-23 06:41] LABS: BUN (BLOOD UREA NITROGEN) 15 MG/DL (6-23); CALCIUM, SERUM 9.4 MG/DL (8.5-10.4); CHLORIDE, SERUM 113 MMOL/L (96-112); CO2 (CARBON DIOXIDE) 23 MMOL/L (24-34); CREATININE 1.34 MG/DL (0.70-1.30); GFR AFRICAN AMERICAN 62 ML/MIN (>=60); GFR NON AFRICAN AMERICAN 54 ML/MIN (>=60); GLUCOSE, SERUM 90 MG/DL (60-99); POTASSIUM, SERUM 3.8 MMOL/L (3.5-5.3); SODIUM, SERUM 145 MMOL/L (135-148)
[2016-11-23] MEDS ORDERED: NORV10 PO (18:09)
== END 2016-11-23 19:14 | disposition home or self-care (01) | DRG 392 ==
LOC: ER 16:35 → 1SO 22:13
PROVIDERS: Emergency Medicine; Internal Medicine; Internal Medicine Gastroenterology; Nurse Practitioner
PROC: 0DB68ZX Excision of Stomach, Via Natural or Artificial Opening Endoscopic, Diagnostic (ICD-10-PCS; principal; 2016-11-22 13:11)
PROC: 0D758ZZ Dilation of Esophagus, Via Natural or Artificial Opening Endoscopic (ICD-10-PCS; 2016-11-22 13:11)
DX: R13.12 Dysphagia, oropharyngeal phase (principal); E11.22 Type 2 diabetes mellitus with diabetic chronic kidney disease; J44.9 Chronic obstructive pulmonary disease, unspecified; I12.9 Hypertensive chronic kidney disease with stage 1 through stage 4 chronic kidney disease, or unspecified chronic kidney disease; N18.3 Chronic kidney disease, stage 3 (moderate); R00.1 Bradycardia, unspecified; I73.9 Peripheral vascular disease, unspecified; N40.0 Benign prostatic hyperplasia without lower urinary tract symptoms; K21.9 Gastro-esophageal reflux disease without esophagitis; F41.8 Other specified anxiety disorders; R11.2 Nausea with vomiting, unspecified; F32.9 Major depressive disorder, single episode, unspecified; G40.909 Epilepsy, unspecified, not intractable, without status epilepticus; Z79.899 Other long term (current) drug therapy; Z87.891 Personal history of nicotine dependence; Z85.828 Personal history of other malignant neoplasm of skin; Z87.442 Personal history of urinary calculi; Z88.8 Allergy status to other drugs, medicaments and biological substances; Z96.652 Presence of left artificial knee joint; Z90.49 Acquired absence of other specified parts of digestive tract; Z98.890 Other specified postprocedural states; Z82.49 Family history of ischemic heart disease and other diseases of the circulatory system
CPT/HCPCS: 36415; 71010; 74177; 78452; 80048; 80053; 81001; 82150; 82550; 82553; 83690; 83735; 83880; 84484; 85025; 85610; 85730; 86850; 86900; 86901; 88305; 93005; 93017; 93306; 93880; 99291; A9270-GY; A9502; C9113; J0153; J0360; J2785; Q9967